=== PATIENT | female | born 1995 | race Hispanic/Latino ===

== ENCOUNTER 2017-01-21 18:31 | Emergency (ER) | payer MEDICAID ==
[2017-01-21 18:32] VITALS: BMI 31.1
[2017-01-21 18:44] VITALS: BP 136/89; PULSE 83; RESP 18; TEMP 98.1; O2SAT 99
[2017-01-21] MEDS ORDERED: Sodium Chloride 0.9% 1,000 ML IV STA (18:56)
[2017-01-21 19:50] LABS: BASO % 0.2 % (0.0-2.0); EOS # 0.1 K/uL (0.0-0.7); EOS % 1.1 % (0.0-4.0); HEMATOCRIT 43.5 % (34.0-47.0); LYMPH # 2.8 K/uL (1.0-4.3); LYMPH % 27.2 % (20.0-40.0); MEAN CELL VOLUME 85.3 fl (81.0-99.0); MEAN CORPUSCULAR HEMOGLOBIN 28.2 pg (27.0-31.0); MEAN PLATELET VOLUME 10.3 fl (7.2-11.7); MONO # 0.9 K/uL (0.0-0.8); MONO % 8.3 % (0.0-10.0); NEUT # 6.6 K/uL (1.8-7.0); NEUT % 63.2 % (50.0-75.0); NRBC % 0.1 % (0.0-0.0); RED CELL DISTRIBUTION WIDTH 14.1 % (11.5-14.5); WHITE BLOOD COUNT 10.4 K/uL (4.8-10.8)
[2017-01-21 20:00] LABS: ALB/GLOB RATIO 1.3 (1.0-2.1); ALKALINE PHOSPHATASE 109 U/L (38-126); ALT/SGPT 31 U/L (9-52); AST/SGOT 18 U/L (14-36); BILIRUBIN,TOTAL 0.4 mg/dl (0.2-1.3); BLOOD UREA NITROGEN 9 mg/dl (7-17); CALCIUM 9.3 mg/dL (8.4-10.2); CARBON DIOXIDE 24 mmol/L (22-30); CHLORIDE 106 mmol/L (98-107); GFR AFRICAN-AMERICAN > 60; GLUCOSE,RANDOM 87 mg/dL (65-105); POTASSIUM 3.7 MMOL/L (3.6-5.0); SODIUM 143 mmol/l (132-148); TOTAL PROTEIN 7.9 G/DL (6.3-8.2)
--- NOTE | 2017-01-21 21:05 | ED PDOC ---
HPI: Female Pain Time Seen by Provider: 01/21/17 18:54 Chief Complaint (Nursing): Female Genitourinary Chief Complaint (Provider): vaginal bleeding History Per: Patient History/Exam Limitations: no limitations Onset/Duration Of Symptoms: Days (2 weeks) Current Symptoms Are (Timing): Still Present Additional Complaint(s): Using about 6-8 tampons a day, twice as many as usual. Similar period a month ago. Prior to that had regular periods. Yesterday started to have lightheadedness and headache which is worsening and prompted visit to ER today. PMD None Past Medical History Reviewed: Historical Data, Nursing Documentation, Vital Signs Vital Signs: Last Vital Signs Temp 98.1 F 01/21/17 18:42 Pulse 83 01/21/17 18:42 Resp 18 01/21/17 18:42 BP 136/89 01/21/17 18:42 Pulse Ox 99 01/21/17 18:42 - Medical History PMH: Gastritis Denies: Chronic Kidney Disease - Surgical History Surgical History: Appendectomy, (x 1) - Family History Family History: States: Unknown Family Hx - Social History Current smoker - smoking cessation education provided: No Alcohol: Occasional Drugs: Denies - Home Medications Home Medications: Ambulatory Orders Medication Instructions Recorded Ibuprofen [Motrin] 600 mg PO Q8 PRN #15 tab 07/30/15 Loratadine [Claritin] 10 mg PO DAILY #15 tab 07/30/15 Amoxicillin/Clavulanate [Augmentin 1 tab PO BID #14 tab 10/03/15 875 MG-125 MG] Ibuprofen [Motrin] 600 mg PO Q6 PRN #15 tab 10/03/15 traMADol [Ultram] 50 mg PO TID PRN #20 tab 10/05/15 Acetaminophen/Butalbital/Caf 1 tab PO TID #20 tab 06/26/16 [Fioricet] Clindamycin Phos/Benzoyl Perox 50 gm TP BID #1 gel.w.pump 06/26/16 [Clinda-Benzoyl Perox 1-5% Pump] Famotidine [Pepcid] 20 mg PO DAILY #20 tab 06/26/16 Clindamycin [Cleocin] 300 mg PO QID #40 cap 08/24/16 Ketoconazole 2% Cr [Nizoral] 1 appl TP BID #1 tube 12/16/16 Nitrofurantoin Macrocrystals 100 mg PO BID #14 cap 12/16/16 [Macrobid] Naproxen [Naprosyn] 1 tab PO BID PRN #30 tab 01/22/17 - Allergies Allergies/Adverse Reactions: Allergies Allergy/AdvReac Type Severity Reaction Status Date / Time ceftriaxone sodium Allergy RASH Verified 06/26/16 18:33 [From Rocephin] Review of Systems ROS Statement: Except As Marked, All Systems Reviewed And Found Negative (and as per HPI) Constitutional: Positive for: Weakness Cardiovascular: Positive for: Light Headedness. Negative for: Chest Pain Genitourinary Female: Positive for: Vaginal Bleeding. Negative for: Pelvic Pain Neurological: Positive for: Headache Physical Exam - Reviewed Nursing Documentation Reviewed: Yes Vital Signs Reviewed: Yes - Physical Exam Appears: Positive for: Non-toxic, No Acute Distress Head Exam: Positive for: ATRAUMATIC, NORMOCEPHALIC Skin: Positive for: Warm, Dry Eye Exam: Positive for: EOMI, PERRL ENT: Negative for: Pharyngeal Erythema, Tonsillar Exudate Neck: Positive for: Painless ROM, Supple Cardiovascular/Chest: Positive for: Regular Rate, Rhythm, Chest Non Tender. Negative for: Murmur Respiratory: Positive for: Normal Breath Sounds. Negative for: Wheezing Gastrointestinal/Abdominal: Positive for: Soft. Negative for: Tenderness Back: Positive for: Normal Inspection. Negative for: Decreased ROM Extremity: Positive for: Normal ROM. Negative for: Deformity Lymphatic: Negative for: Adenopathy Neurologic/Psych: Positive for: Alert. Negative for: Motor/Sensory Deficits - Laboratory Results Result Diagrams: 01/21/17 19:34 01/21/17 19:34 - ECG O2 Sat by Pulse Oximetry: 99 Pulse Ox Interpretation: Normal Medical Decision Making Medical Decision Making: No emergently significant lab abnormalities EXAM: US First Trimester, Transabdominal CLINICAL HISTORY: 21 years old, female; Signs and symptoms; Lmp or gestational age (in weeks): Lmp 12/26/2016; Other: Bleeding 3 wks pos urine preg in er; ; Additional info: Pelvic pain bleeding for 3 wks TECHNIQUE: Real-time transabdominal obstetrical ultrasound of the maternal pelvis and a first trimester with image documentation. COMPARISON: No relevant prior studies available. FINDINGS: Gestation: No intrauterine gestational sac. Uterus/cervix: Endometrium: 0.5 cm in thickness. Closed cervix. Ovaries: RIGHT ovary: 2.7 x 3.1 x 2.4 cm anechoic lesion. LEFT ovary: Normal. No adnexal masses. Free fluid: No significant free fluid. IMPRESSION: 1. No intrauterine gestation. DDX: Early IUP, missed , ectopic . 2. RIGHT ovarian cyst. Thank you for allowing us to participate in the care of your patient. Dictated and Authenticated by: Salomon Patel MD 01/22/2017 12:13 AM Eastern Time ([place] & [place]) Pt is not . DW pt findings and plan of care. Naprosyn for pain, f/u [facility]. Disposition - Clinical Impression Clinical Impression: Menorrhagia, Headache - Disposition Referrals: [facility] [Outside] [facility] [Outside[facility] (FOLLOW UP WITH [facility]EXT WEEK) Disposition: Routine/Home Disposition Time: 00:00 Condition: GOOD Prescriptions: Naproxen [Naprosyn] 1 tab PO BID PRN #30 tab PRN Reason: Pain Instructions: Menorrhagia (ED)
--- NOTE | 2017-01-22 00:13 | US ---
EXAM: US First Trimester, Transabdominal CLINICAL HISTORY: 21 years old, female; Signs and symptoms; Lmp or gestational age (in weeks): Lmp 12/26/2016; Other: Bleeding 3 wks pos urine preg in er; ; Additional info: Pelvic pain bleeding for 3 wks TECHNIQUE: Real-time transabdominal obstetrical ultrasound of the maternal pelvis and a first trimester with image documentation. COMPARISON: No relevant prior studies available. FINDINGS: Gestation: No intrauterine gestational sac. Uterus/cervix: Endometrium: 0.5 cm in thickness. Closed cervix. Ovaries: RIGHT ovary: 2.7 x 3.1 x 2.4 cm anechoic lesion. LEFT ovary: Normal. No adnexal masses. Free fluid: No significant free fluid. IMPRESSION: 1. No intrauterine gestation. DDX: Early IUP, missed , ectopic . 2. RIGHT ovarian cyst.
== END 2017-01-22 00:27 | disposition home or self-care (01) ==
LOC: H.ER 18:31
DX: N83.201 Unspecified ovarian cyst, right side (principal); N92.0 Excessive and frequent menstruation with regular cycle; R51 Headache
CPT/HCPCS: 76805; 76817; 80053; 84702; 85025; 85610; 85730; 86850; 86900; 99283; J7040

== ENCOUNTER 2017-03-26 22:15 | Emergency (ER) | payer SELFPAY ==
[2017-03-26 22:23] VITALS: BMI 37.0
[2017-03-26 22:28] VITALS: PULSE 90; RESP 16; TEMP 98.9; O2SAT 99
--- NOTE | 2017-03-26 23:22 | ED PDOC ---
Upper Extremity Pain/Injury Time Seen by Provider: 03/26/17 22:52 Chief Complaint (Nursing): Upper Extremity Problem/Injury Chief Complaint (Provider): fall injury History Per: Patient History/Exam Limitations: no limitations Additional Complaint(s): 21yo F in ED for eval of fall injury sustained last night after slipping on black ice outside injuring left wrist/hand/shoulder/elbow and injury to left hip and lower back with bruising. no head injury no deformity. admits to swelling and pain worse at elbow and hand-. right hand dominant Past Medical History Reviewed: Historical Data, Nursing Documentation, Vital Signs Vital Signs: Last Vital Signs Temp 98.9 F 03/26/17 22:23 Pulse 90 03/26/17 22:23 Resp 16 03/26/17 22:23 BP Pulse Ox 99 03/26/17 22:23 - Medical History PMH: Gastritis Denies: Chronic Kidney Disease - Surgical History Surgical History: Appendectomy, (x 1) - Family History Family History: States: Unknown Family Hx - Home Medications Home Medications: Ambulatory Orders Medication Instructions Recorded Ibuprofen [Motrin] 600 mg PO Q8 PRN #15 tab 07/30/15 Loratadine [Claritin] 10 mg PO DAILY #15 tab 07/30/15 Amoxicillin/Clavulanate [Augmentin 1 tab PO BID #14 tab 10/03/15 875 MG-125 MG] Ibuprofen [Motrin] 600 mg PO Q6 PRN #15 tab 10/03/15 traMADol [Ultram] 50 mg PO TID PRN #20 tab 10/05/15 Acetaminophen/Butalbital/Caf 1 tab PO TID #20 tab 06/26/16 [Fioricet] Clindamycin Phos/Benzoyl Perox 50 gm TP BID #1 gel.w.pump 06/26/16 [Clinda-Benzoyl Perox 1-5% Pump] Famotidine [Pepcid] 20 mg PO DAILY #20 tab 06/26/16 Clindamycin [Cleocin] 300 mg PO QID #40 cap 08/24/16 Ketoconazole 2% Cr [Nizoral] 1 appl TP BID #1 tube 12/16/16 Nitrofurantoin Macrocrystals 100 mg PO BID #14 cap 12/16/16 [Macrobid] Naproxen [Naprosyn] 1 tab PO BID PRN #30 tab 01/22/17 Cyclobenzaprine [Cyclobenzaprine 10 mg PO BID #14 tab 03/27/17 HCl] Ibuprofen [Motrin] 400 mg PO Q6 #30 tab 03/27/17 - Allergies Allergies/Adverse Reactions: Allergies Allergy/AdvReac Type Severity Reaction Status Date / Time ceftriaxone sodium Allergy RASH Verified 03/26/17 22:22 [From Rocephin] Review of Systems ROS Statement: Except As Marked, All Systems Reviewed And Found Negative Musculoskeletal: Positive for: Shoulder Pain, Arm Pain, Back Pain, Hand Pain, Leg Pain Neurological: Negative for: Weakness, Numbness, Incoordination, Change in Speech , Confusion, Seizures, Altered Mental Status, Headache, Dizziness Physical Exam - Reviewed Nursing Documentation Reviewed: Yes Vital Signs Reviewed: Yes - Physical Exam Appears: Positive for: Well, Non-toxic, No Acute Distress Skin: Positive for: Normal Color, Warm, DRY Cardiovascular/Chest: Positive for: Regular Rate, Rhythm Respiratory: Positive for: CNT, Normal Breath Sounds Back: Positive for: Other (brusing noted to left lateral leg). Negative for: L CVA Tenderness, R CVA Tenderness, Vertebral Tenderness, Decreased ROM, Muscle Spasm Extremity: Positive for: Other (left hand: brusing and swelling noted lateral hand pain with ROM, nuerovasc intact. wrist: pain with ROM no defomirty. elbow: tenderness noted pain with pronation supination. shoulder: AC joint tenderness. scapular: nontender. clavicle nontender. ) Neurologic/Psych: Positive for: Alert, Oriented - ECG O2 Sat by Pulse Oximetry: 99 - Radiology X-Ray: Interpreted by Me (shoulder: negative. elbow: negative. hand: negative) - Progress ED Course And Treament: Orders Category Date Time Status ELBOW LEFT 3 VIEWS ROUTINE [RAD] Stat Radiology 03/26/17 23:29 Ordered ELBOW RIGHT 3 VIEWS ROUTINE [RAD] Stat Radiology 03/26/17 22:52 Stop Req HAND LEFT 3 VIEWS ROUTINE [RAD] Stat Radiology 03/26/17 22:52 Ordered SHOULDER LEFT [RAD] Stat Radiology 03/26/17 22:52 Ordered WRIST, LEFT 3 VIEWS [RAD] Stat Radiology 03/26/17 22:52 Ordered Medical Decision Making Medical Decision Making: dx: contusions and sprains motrin for pain and vlecro wrist splint and sling for shoulder. f.u with pmd Disposition - Clinical Impression Clinical Impression: Contusion, Sprain - Patient ED Disposition Is Patient to be Admitted: No Counseled Patient/Family Regarding: Studies Performed, Diagnosis, Need For Followup, Rx Given - Disposition Referrals: [facility] [Outside] Disposition: Routine/Home Disposition Time: 00:09 Condition: STABLE Prescriptions: Cyclobenzaprine [Cyclobenzaprine HCl] 10 mg PO BID #14 tab Ibuprofen [Motrin] 400 mg PO Q6 #30 tab Instructions: Wrist Injury (ED), Sprain (ED), Contusion in Adults (DC) Forms: [facility] ([place])
--- NOTE | 2017-03-27 12:54 | RAD ---
PROCEDURE: Left Hand Radiographs. HISTORY: Hand injury. COMPARISON: Comparison made with concurrent radiographs of the left wrist. FINDINGS: BONES: Normal. No fracture. JOINTS: Normal. No osteoarthritic changes. SOFT TISSUES: Normal. OTHER FINDINGS: None. IMPRESSION: No evidence of acute displaced fracture nor dislocation. If symptoms persist or occult fracture suspected clinically consider repeat radiographs in 5-10 days as most fractures should become radiographically evident in this timeframe.
--- NOTE | 2017-03-27 13:57 | RAD ---
PROCEDURE: Radiographs of the Left Shoulder HISTORY: Shoulder injury COMPARISON: No prior. FINDINGS: BONES: Normal. No fracture. JOINTS: Normal. Glenohumeral and acromioclavicular joints preserved. No osteoarthritis. SOFT TISSUES: Normal. OTHER FINDINGS: None. IMPRESSION: No evidence of acute displaced fracture nor dislocation. If symptoms persist or occult fracture suspected clinically recommend repeat radiographs in 5-10 days as most fractures become radiographically evident in this timeframe. Print.
--- NOTE | 2017-03-27 14:08 | RAD ---
PROCEDURE: Left Wrist Radiographs. HISTORY: Wrist Pain. No history of recent/ related trauma provided COMPARISON: None. FINDINGS: BONES: Normal. No fracture. JOINTS: Normal. No dislocation. SOFT TISSUES: Normal. OTHER FINDINGS: None. IMPRESSION: Normal left wrist radiographs.
--- NOTE | 2017-03-27 14:08 | RAD ---
PROCEDURE: Radiographs of the left elbow. HISTORY: elbow injury COMPARISON: No prior. FINDINGS: BONES: Normal. No fracture. JOINTS: Normal. No osteoarthritis. SOFT TISSUES: Normal. JOINT EFFUSION: None. OTHER FINDINGS: None IMPRESSION: Unremarkable radiographs of the left elbow.
== END 2017-03-27 00:25 | disposition home or self-care (01) ==
LOC: H.ER 22:15
DX: S63.502A Unspecified sprain of left wrist, initial encounter (principal); S40.012A Contusion of left shoulder, initial encounter; W19.XXXA Unspecified fall, initial encounter; Y92.89 Other specified places as the place of occurrence of the external cause

== ENCOUNTER 2017-05-14 00:05 | Emergency (ER) | payer SELFPAY ==
[2017-05-14 00:05] VITALS: BMI 37.0
[2017-05-14 00:33] VITALS: BP 125/78; PULSE 84; RESP 16; TEMP 98.2; O2SAT 98
--- NOTE | 2017-05-14 01:52 | ED PDOC ---
HPI: Abdomen Time Seen by Provider: 05/14/17 01:01 Chief Complaint (Nursing): Female Genitourinary Chief Complaint (Provider): Female Genitourinary History Per: Patient History/Exam Limitations: no limitations Onset/Duration Of Symptoms: Other (x1 week) Current Symptoms Are (Timing): Still Present Additional Complaint(s): 22 y/o female presents to the ED complaining of suprapubic pain and blood in urine x 1 week which got worse today. Reports pain with urination but denies back pain, fever, vomiting or any further medical complaints. Past Medical History Reviewed: Historical Data, Nursing Documentation, Vital Signs Vital Signs: Last Vital Signs Temp 98.2 F 05/14/17 00:30 Pulse 84 05/14/17 00:30 Resp 16 05/14/17 00:30 BP 125/78 05/14/17 00:30 Pulse Ox 98 05/14/17 02:41 - Medical History PMH: Gastritis Denies: Chronic Kidney Disease - Surgical History Surgical History: Appendectomy, (x 1) Other surgeries: Traumatic amputation of right arm - Family History Family History: States: Unknown Family Hx - Home Medications Home Medications: Ambulatory Orders Medication Instructions Recorded Ibuprofen [Motrin] 600 mg PO Q8 PRN #15 tab 07/30/15 Loratadine [Claritin] 10 mg PO DAILY #15 tab 07/30/15 Amoxicillin/Clavulanate [Augmentin 1 tab PO BID #14 tab 10/03/15 875 MG-125 MG] Ibuprofen [Motrin] 600 mg PO Q6 PRN #15 tab 10/03/15 traMADol [Ultram] 50 mg PO TID PRN #20 tab 10/05/15 Acetaminophen/Butalbital/Caf 1 tab PO TID #20 tab 06/26/16 [Fioricet] Clindamycin Phos/Benzoyl Perox 50 gm TP BID #1 gel.w.pump 06/26/16 [Clinda-Benzoyl Perox 1-5% Pump] Famotidine [Pepcid] 20 mg PO DAILY #20 tab 06/26/16 Clindamycin [Cleocin] 300 mg PO QID #40 cap 08/24/16 Ketoconazole 2% Cr [Nizoral] 1 appl TP BID #1 tube 12/16/16 Nitrofurantoin Macrocrystals 100 mg PO BID #14 cap 12/16/16 [Macrobid] Naproxen [Naprosyn] 1 tab PO BID PRN #30 tab 01/22/17 Cyclobenzaprine [Cyclobenzaprine 10 mg PO BID #14 tab 03/27/17 HCl] Ibuprofen [Motrin] 400 mg PO Q6 #30 tab 03/27/17 Nitrofurantoin Macrocrystals 100 mg PO BID #14 cap 05/14/17 [Macrobid] - Allergies Allergies/Adverse Reactions: Allergies Allergy/AdvReac Type Severity Reaction Status Date / Time ceftriaxone sodium Allergy RASH Verified 05/14/17 00:30 [From Rocephin] Review of Systems ROS Statement: Except As Marked, All Systems Reviewed And Found Negative (As per HPI, otherwise negative) Constitutional: Negative for: Fever Gastrointestinal: Positive for: Abdominal Pain (Suprapubic pain). Negative for : Vomiting Genitourinary Female: Positive for: Hematuria Musculoskeletal: Negative for: Back Pain Physical Exam - Reviewed Nursing Documentation Reviewed: Yes Vital Signs Reviewed: Yes - Physical Exam Appears: Positive for: Well, Non-toxic, No Acute Distress Head Exam: Positive for: ATRAUMATIC, NORMAL INSPECTION, NORMOCEPHALIC Skin: Positive for: Normal Color, Warm, Dry Eye Exam: Positive for: EOMI, Normal appearance, PERRL ENT: Positive for: Normal ENT Inspection Neck: Positive for: Normal, Painless ROM, Supple Cardiovascular/Chest: Positive for: Regular Rate, Rhythm. Negative for: Murmur Respiratory: Positive for: Normal Breath Sounds. Negative for: Accessory Muscle Use, Respiratory Distress Gastrointestinal/Abdominal: Positive for: Tenderness (Suprapubic tenderness) Back: Positive for: Normal Inspection Extremity: Positive for: Normal ROM. Negative for: Deformity Neurologic/Psych: Positive for: Alert, Oriented (x3) - ECG O2 Sat by Pulse Oximetry: 98 (RA) Pulse Ox Interpretation: Normal Medical Decision Making Medical Decision Making: Time: 01:33 Initial Impression: UTI, related complications Plan: Urine dipstick Pyridium 100mg PO urine (HCG) Reevaluation Time: 02:10 --Urine dip is consistent with UTI Scribe Attestation: Documented by Marco Romero acting as a scribe for Paula Del Rosario MD. Scribe Attestation: All medical record entries made by the Scribe were at my direction and personally dictated by me. I have reviewed the chart and agree that the record accurately reflects my personal performance of the history, physical exam, medical decision making, and the department course for this patient. I have also personally directed, reviewed, and agree with the discharge instructions and disposition. Disposition - Clinical Impression Clinical Impression: Abdominal pain in female, UTI (urinary tract infection) - Patient ED Disposition Is Patient to be Admitted: No Doctor Will See Patient In The: Office Counseled Patient/Family Regarding: Studies Performed, Diagnosis, Need For Followup - Disposition Referrals: [facility] [Outside] Disposition: Routine/Home Disposition Time: 02:32 Condition: GOOD Additional Instructions: Take your medications as instructed. Follow up with your PCP in 2-3 days. Prescriptions: Nitrofurantoin Macrocrystals [Macrobid] 100 mg PO BID #14 cap Instructions: Urinary Tract Infection in Women (ED)
== END 2017-05-14 02:30 | disposition home or self-care (01) ==
LOC: H.ER 00:05
DX: N39.0 Urinary tract infection, site not specified (principal); R10.9 Unspecified abdominal pain

== ENCOUNTER 2017-10-21 22:07 | Emergency (ER) | payer MEDICAID ==
[2017-10-21 22:07] VITALS: BMI 37.0
[2017-10-21] MEDS ORDERED: Lactated Ringer's 1,000 ML IV STA (22:58)
--- NOTE | 2017-10-21 23:29 | ED PDOC ---
HPI: Abdomen Time Seen by Provider: 10/21/17 22:49 Chief Complaint (Nursing): Abdominal Pain Chief Complaint (Provider): abdominal pain History Per: Patient History/Exam Limitations: no limitations Onset/Duration Of Symptoms: Days (x1 week) Current Symptoms Are (Timing): Still Present Quality Of Discomfort: "Pain" Additional Complaint(s): Kerry Means is a 22 year old female, with no significant past medical history, who presents to the emergency department for evaluation of an intermittent abdominal pain onset for x1 week. Patient is A0, 12 weeks and 5 days . Patient states she fell last Monday while going up the stairs with her daughter. At the time she fell forward on to her abdomen but due to no bleeding, she didn't seek medical attention. Patient reports a persistent pain since fall and describes an abdominal pain as well as lower back pain. Patient saw her OB at [facility] on Monday where she had a urine test which came back normal and was told to follow up. She denies any fever, chills or other medical complaints. PMD: [facility]. 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 - Family History Family History: States: Unknown Family Hx - Home Medications Home Medications: Ambulatory Orders Medication Instructions Recorded Ibuprofen [Motrin] 600 mg PO Q8 PRN #15 tab 07/30/15 Loratadine [Claritin] 10 mg PO DAILY #15 tab 07/30/15 Amoxicillin/Clavulanate [Augmentin 1 tab PO BID #14 tab 10/03/15 875 MG-125 MG] Ibuprofen [Motrin] 600 mg PO Q6 PRN #15 tab 10/03/15 traMADol [Ultram] 50 mg PO TID PRN #20 tab 10/05/15 Acetaminophen/Butalbital/Caf 1 tab PO TID #20 tab 06/26/16 [Fioricet] Clindamycin Phos/Benzoyl Perox 50 gm TP BID #1 gel.w.pump 06/26/16 [Clinda-Benzoyl Perox 1-5% Pump] Famotidine [Pepcid] 20 mg PO DAILY #20 tab 06/26/16 Clindamycin [Cleocin] 300 mg PO QID #40 cap 08/24/16 Ketoconazole 2% Cr [Nizoral] 1 appl TP BID #1 tube 12/16/16 Nitrofurantoin Macrocrystals 100 mg PO BID #14 cap 12/16/16 [Macrobid] Naproxen [Naprosyn] 1 tab PO BID PRN #30 tab 01/22/17 Cyclobenzaprine [Cyclobenzaprine 10 mg PO BID #14 tab 03/27/17 HCl] Ibuprofen [Motrin] 400 mg PO Q6 #30 tab 03/27/17 Nitrofurantoin Macrocrystals 100 mg PO BID #14 cap 05/14/17 [Macrobid] Nitrofurantoin Macrocrystals 100 mg PO BID #14 cap 10/22/17 [Macrobid] - Allergies Allergies/Adverse Reactions: Allergies Allergy/AdvReac Type Severity Reaction Status Date / Time ceftriaxone sodium Allergy RASH Verified 05/14/17 00:30 [From Rocephin] Review of Systems ROS Statement: Except As Marked, All Systems Reviewed And Found Negative Constitutional: Negative for: Fever, Chills Gastrointestinal: Positive for: Abdominal Pain Genitourinary Female: Negative for: Vaginal Bleeding Musculoskeletal: Positive for: Back Pain (lower) Physical Exam - Reviewed Nursing Documentation Reviewed: Yes Vital Signs Reviewed: Yes - Physical Exam Appears: Positive for: Non-toxic, No Acute Distress Head Exam: Positive for: ATRAUMATIC, NORMAL INSPECTION, NORMOCEPHALIC Skin: Positive for: Normal Color, Warm, Dry Eye Exam: Positive for: Normal appearance, EOMI, PERRL Neck: Positive for: Painless ROM Cardiovascular/Chest: Positive for: Regular Rate, Rhythm. Negative for: Murmur Respiratory: Positive for: Normal Breath Sounds. Negative for: Respiratory Distress Gastrointestinal/Abdominal: Positive for: Normal Exam, Soft. Negative for: Tenderness, Guarding, Rebound Back: Positive for: Normal Inspection. Negative for: L CVA Tenderness, R CVA Tenderness, Vertebral Tenderness Extremity: Positive for: Normal ROM (upper and lower extremities), Deformity ( limb deformity of the right upper extremity). Negative for: Swelling Neurologic/Psych: Positive for: Alert, Oriented. Negative for: Motor/Sensory Deficits - Laboratory Results Result Diagrams: 10/21/17 23:30 10/21/17 23:30 - ECG O2 Sat by Pulse Oximetry: 97 (RA) Pulse Ox Interpretation: Normal Medical Decision Making Medical Decision Making: Time: 22:49 Initial Impression: 22 y/o female with abdominal pain in setting of recent fall in Initial Plan: --Beta-HCG, Quantitative --CMP --Urine dipstick --CBC w/ differential --Tylenol 325mg tab 650 mg PO --Lactated Ringers 1,000 ml IV 1,000 mls/hr --Urinalysis --Pelvis/Transvag US --Reevaluation 00:51 Transvaginal US FINDINGS: Gestation: A single live intrauterine is noted with heart rate in the range of 157 bpm. A yolk sac is present. [place] rump length is 6.4 cm which corresponds to an estimated gestational age of 12 weeks 5 days plus or minus 4 days. Placenta/amniotic fluid: Cannot be adequately evaluated due to the early gestational age. Uterus/cervix: The uterus measures 14.4 x 6.6 x 9 cm. No myometrial mass. Ovaries: The right ovary is displaced and obscured by overlying bowel gas and cannot be visualized. The left ovary is displaced and obscured by overlying bowel gas and cannot be visualized. Free fluid: No significant free fluid is noted within the pelvis. IMPRESSION: 1. Single living intrauterine with an estimated gestational age of 12 weeks 5 and a heart rate of 157 bpm. 2. Nonvisualization of the ovaries. No acute findings. 01:02 Labs reviewed and shows no clinical significant abnormalities. However, urine is indicative of an UTI. Patient is medically stable upon discharge, diagnosis UTI. ----- Scribe Attestation: Documented by Filippo Larsen, acting as a scribe for Chucky Noriega MD. Provider Scribe Attestation: All medical record entries made by the Scribe were at my direction and personally dictated by me. I have reviewed the chart and agree that the record accurately reflects my personal performance of the history, physical exam, medical decision making, and the department course for this patient. I have also personally directed, reviewed, and agree with the discharge instructions and disposition. Disposition - Clinical Impression Clinical Impression: UTI (urinary tract infection) during - Disposition Disposition: Routine/Home Disposition Time: 01:02 Condition: STABLE Prescriptions: Nitrofurantoin Macrocrystals [Macrobid] 100 mg PO BID #14 cap Instructions: Urinary Tract Infection, Adult (DC) Forms: [facility] (Lao)
[2017-10-22 00:03] LABS: BASO % 0.3 % (0.0-2.0); EOS # 0.1 K/uL (0.0-0.7); EOS % 0.9 % (0.0-4.0); HEMOGLOBIN 14.2 g/dL (12.0-16.0); LYMPH # 2.6 K/uL (1.0-4.3); LYMPH % 19.7 % (20.0-40.0); MEAN CELL VOLUME 86.2 fl (81.0-99.0); MEAN CORPUSCULAR HEMOGLOBIN 28.9 pg (27.0-31.0); MEAN CORPUSCULAR HGB CONC 33.6 g/dL (33.0-37.0); MEAN PLATELET VOLUME 10.2 fl (7.2-11.7); MONO # 1.1 K/uL (0.0-0.8); MONO % 7.9 % (0.0-10.0); NEUT # 9.5 K/uL (1.8-7.0); NEUT % 71.2 % (50.0-75.0); RBC 4.92 Mil/uL (3.80-5.20); WHITE BLOOD COUNT 13.4 K/uL (4.8-10.8)
[2017-10-22 00:08] LABS: SQUAMOUS EPITHIAL 6 /hpf (0-5); URINE BACTERIA RARE (<OCC); URINE BILIRUBIN NEGATIVE (NEGATIVE); URINE BLOOD NEGATIVE (NEGATIVE); URINE CALCIUM OXALATE CRYSTALS FEW /hpf (<OCC); URINE CLARITY CLOUDY (Clear); URINE COLOR AMBER (YELLOW); URINE GLUCOSE (UA) NEG (Normal); URINE LEUKOCYTE ESTERASE TRACE Leu/uL (Negative); URINE PROTEIN NEGATIVE (NEGATIVE)
[2017-10-22 00:16] LABS: ALB/GLOB RATIO 1.1 (1.0-2.1); ALBUMIN 4.5 g/dL (3.5-5.0); ALT/SGPT 18 U/L (9-52); AST/SGOT 21 U/L (14-36); BLOOD UREA NITROGEN 5 mg/dl (7-17); CALCIUM 9.6 mg/dL (8.4-10.2); GFR AFRICAN-AMERICAN > 60; GFR NON-AFRICAN AMERICAN > 60
[2017-10-22 01:18] VITALS: BP 115/68; PULSE 88; RESP 18; TEMP 98.3; O2SAT 100
--- NOTE | 2017-10-23 10:10 | US ---
Date of service: 10/22/2017 PROCEDURE: OB Pelvic Ultrasound HISTORY: Abdominal pain in preg COMPARISON: None available. FINDINGS: UTERUS: Single Live intrauterine gestation. CRL measures 6.4 cm equivalent to 12 weeks and 5 days gestatioin age (Ultrasound estimated): 12 weeks and 5 days Date of delivery (Ultrasound estimated) : 05/01/2018 Heart rate: 156 bpm. Jennifer-gestational hemorrhage: None. Uterus measures 14.4 x 0.9 x 6.6 cm. No mass CERVIX: Long and closed. No cervical abnormality seen. RIGHT OVARY: Not visualized. LEFT OVARY: Not visualized. FREE FLUID: None. OTHER FINDINGS: None. IMPRESSION: Single live intrauterine gestation with mean gestational age of 12 weeks and 5 days. The estimated date of delivery by ultrasound is 05/01/2018. The ultrasound dates correspond with the clinical dates.
== END 2017-10-22 01:18 | disposition home or self-care (01) ==
LOC: H.ER 22:07
DX: O23.41 Unspecified infection of urinary tract in pregnancy, first trimester (principal); Z3A.12 12 weeks gestation of pregnancy

== ENCOUNTER 2017-10-23 19:06 | Emergency (ER) | payer MEDICAID ==
[2017-10-23 19:06] VITALS: BMI 37.0
[2017-10-23 19:13] VITALS: TEMP 98.5; O2SAT 100
--- NOTE | 2017-10-23 20:24 | ED PDOC ---
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 Patient reports she is 12 weeks . She developed chest pain first causing her sister to call an ambulance. Denies fever, cough, leg pain, anxiety and travel. no history of PE/dvt or risk factors. PMD: : 2 Para: 1 Past Medical History Reviewed: Historical Data, Nursing Documentation, Vital Signs Vital Signs: Last Vital Signs Temp 98.5 F 10/23/17 23:37 Pulse 86 10/24/17 06:10 Resp 16 10/24/17 06:10 BP 113/70 10/24/17 06:10 Pulse Ox 100 10/25/17 11:06 - Medical History PMH: No Chronic Diseases, Gastritis Denies: Chronic Kidney Disease - Surgical History Surgical History: Appendectomy, (x 1) Other surgeries: right arm amputation - Family History Family History: States: Unknown Family Hx - Social History Current smoker - smoking cessation education provided: No Alcohol: None Drugs: Denies - Home Medications Home Medications: Ambulatory Orders Medication Instructions Recorded Ibuprofen [Motrin] 600 mg PO Q8 PRN #15 tab 07/30/15 Loratadine [Claritin] 10 mg PO DAILY #15 tab 07/30/15 Amoxicillin/Clavulanate [Augmentin 1 tab PO BID #14 tab 10/03/15 875 MG-125 MG] Ibuprofen [Motrin] 600 mg PO Q6 PRN #15 tab 10/03/15 traMADol [Ultram] 50 mg PO TID PRN #20 tab 10/05/15 Acetaminophen/Butalbital/Caf 1 tab PO TID #20 tab 06/26/16 [Fioricet] Clindamycin Phos/Benzoyl Perox 50 gm TP BID #1 gel.w.pump 06/26/16 [Clinda-Benzoyl Perox 1-5% Pump] Famotidine [Pepcid] 20 mg PO DAILY #20 tab 06/26/16 Clindamycin [Cleocin] 300 mg PO QID #40 cap 08/24/16 Ketoconazole 2% Cr [Nizoral] 1 appl TP BID #1 tube 12/16/16 Nitrofurantoin Macrocrystals 100 mg PO BID #14 cap 12/16/16 [Macrobid] Naproxen [Naprosyn] 1 tab PO BID PRN #30 tab 01/22/17 Cyclobenzaprine [Cyclobenzaprine 10 mg PO BID #14 tab 03/27/17 HCl] Ibuprofen [Motrin] 400 mg PO Q6 #30 tab 03/27/17 Nitrofurantoin Macrocrystals 100 mg PO BID #14 cap 05/14/17 [Macrobid] Nitrofurantoin Macrocrystals 100 mg PO BID #14 cap 10/22/17 [Macrobid] Nitrofurantoin Macrocrystals 100 mg PO BID #14 cap 10/24/17 [Macrobid] - Allergies Allergies/Adverse Reactions: Allergies Allergy/AdvReac Type Severity Reaction Status Date / Time ceftriaxone sodium Allergy RASH Verified 10/23/17 19:10 [From Rocephin] Review of Systems ROS Statement: Except As Marked, All Systems Reviewed And Found Negative Constitutional: Negative for: Fever, Chills Cardiovascular: Positive for: Chest Pain Respiratory: Positive for: Shortness of Breath. Negative for: Cough Gastrointestinal: Positive for: Abdominal Pain Physical Exam - Reviewed Nursing Documentation Reviewed: Yes Vital Signs Reviewed: Yes - Physical Exam Appears: Positive for: Non-toxic, No Acute Distress Head Exam: Positive for: ATRAUMATIC, NORMAL INSPECTION, NORMOCEPHALIC Skin: Positive for: Normal Color, Warm, Dry Eye Exam: Positive for: EOMI, Normal appearance, PERRL ENT: Positive for: Normal ENT Inspection Neck: Positive for: Normal, Painless ROM, Supple Cardiovascular/Chest: Positive for: Regular Rate, Rhythm. Negative for: Murmur Respiratory: Positive for: Normal Breath Sounds. Negative for: Wheezing, Respiratory Distress Gastrointestinal/Abdominal: Positive for: Normal Exam, Soft. Negative for: Tenderness Back: Positive for: Normal Inspection Extremity: Positive for: Normal ROM, Capillary Refill (less than 2 s). Negative for: Tenderness, Calf Tenderness, Deformity, Swelling Neurologic/Psych: Positive for: Alert, Oriented (x 3). Negative for: Motor/ Sensory Deficits - Laboratory Results Result Diagrams: 10/23/17 20:32 10/23/17 20:32 - ECG O2 Sat by Pulse Oximetry: 100 (RA) Pulse Ox Interpretation: Normal Medical Decision Making Medical Decision Making: Time; 20:06 Impression: chest pain and abdominal pain Initial Plan: --Beta Quant --EKG --CBC --CMP --D Dimer 23:48 EXAM: US First Trimester, Transabdominal CLINICAL HISTORY: 22 years old, female; Pain; Other: Chest pain; Gestational age or lmp: 08/01/17; ; Additional info: Abdominal pain TECHNIQUE: Real-time transabdominal obstetrical ultrasound of the maternal pelvis and a first trimester with image documentation. COMPARISON: US - OB , LIMITED 2017-10-22 00:09 FINDINGS: Gestation: Single live intrauterine gestation. heart rate of 154 beats per minute. [place]-rump length of 6.7 cm, correlating with gestational age of 13 weeks 0 days. Uterus/cervix: No subchorionic hemorrhage. Closed cervix. Ovaries: Normal ovaries. No adnexal masses. Free fluid: No significant free fluid. IMPRESSION: 1. Single live intrauterine gestation. Thank you for allowing us to participate in the care of your patient. Dictated and Authenticated by: Salomon Patel MD 10/23/2017 11:48 PM Eastern Time ([place] & [place]) ddimer elevated. explained to patient the risks/benefits of the CT scan angio to rule out PE. pt states she has no chest pain, and given potential damage from the scatter of radiation pt declining. understands the risks involved. pt appears to be comfortable and in no distress. 00:19 Labs demonstrate borderline UTI and trace leukocytes. Patient is denying any vaginal bleeding at this time. Explained results of US and patient is refusing follow up CT scan. Prescribed Macrobid (pt was previously prescribed that but said she hasnt taken it) and advised patient to follow up with [facility] tomorrow. Also advised patient to continue vitamins. Return precautions given. ---- Scribe Attestation: Documented by Tamara Laurent, acting as a scribe for Martha Oakes MD Provider Scribe Attestation: All medical record entries made by the Scribe were at my direction and personally dictated by me. I have reviewed the chart and agree that the record accurately reflects my personal performance of the history, physical exam, medical decision making, and the department course for this patient. I have also personally directed, reviewed, and agree with the discharge instructions and disposition. Disposition - Clinical Impression Clinical Impression: Abdominal discomfort, Abdominal pain during - Patient ED Disposition Is Patient to be Admitted: No Counseled Patient/Family Regarding: Studies Performed, Diagnosis, Need For Followup, Rx Given - Disposition Disposition: Routine/Home Disposition Time: 00:00 Condition: IMPROVED Additional Instructions: follow up in [facility] return to the ED with any worsening or concerning symptoms Prescriptions: Nitrofurantoin Macrocrystals [Macrobid] 100 mg PO BID #14 cap Instructions: Urinary Tract Infection, Adult (DC) Forms: [employer] ([place])
[2017-10-23 20:37] LABS: BASO % 0.4 % (0.0-2.0); EOS % 0.3 % (0.0-4.0); HEMOGLOBIN 13.4 g/dL (12.0-16.0); LYMPH # 1.9 K/uL (1.0-4.3); LYMPH % 14.9 % (20.0-40.0); MEAN CORPUSCULAR HEMOGLOBIN 29.1 pg (27.0-31.0); MEAN CORPUSCULAR HGB CONC 33.8 g/dL (33.0-37.0); MONO # 0.7 K/uL (0.0-0.8); MONO % 5.1 % (0.0-10.0); NEUT # 10.2 K/uL (1.8-7.0); NEUT % 79.3 % (50.0-75.0); RBC 4.61 Mil/uL (3.80-5.20); WHITE BLOOD COUNT 12.8 K/uL (4.8-10.8)
[2017-10-23 20:54] LABS: ALB/GLOB RATIO 1.2 (1.0-2.1); ALT/SGPT 25 U/L (9-52); AST/SGOT 15 U/L (14-36); BLOOD UREA NITROGEN 4 mg/dl (7-17); CALCIUM 9.2 mg/dL (8.4-10.2); GFR AFRICAN-AMERICAN > 60; GFR NON-AFRICAN AMERICAN > 60
[2017-10-23 23:39] VITALS: BP 113/70; PULSE 86; RESP 16
[2017-10-24 00:33] LABS: SQUAMOUS EPITHIAL 14 /hpf (0-5); URINE BACTERIA RARE (<OCC); URINE BILIRUBIN NEGATIVE (NEGATIVE); URINE BLOOD NEGATIVE (NEGATIVE); URINE CLARITY CLOUDY (Clear); URINE COLOR YELLOW (YELLOW); URINE GLUCOSE (UA) NEG (Normal); URINE LEUKOCYTE ESTERASE SMALL Leu/uL (Negative); URINE PROTEIN 30 mg/dL (NEGATIVE)
--- NOTE | 2017-10-24 09:39 | US ---
Date of service: 10/23/2017 PROCEDURE: Obstetrical ultrasound examination HISTORY: abdominal pain COMPARISON: 10/22/2017 TECHNIQUE: Transabdominal FINDINGS: The examination demonstrates a single live intrauterine gestation. The heart rate is 154 beats per minute. The [place]-rump length is 6.7 cm equal to 13 weeks 0 days gestational age. Gestational sac diameter of 6.7 cm is out of range for age determination. The YANIV by ultrasound is 04/30/2018. There is no subchorionic hemorrhage identified. The cervix measures 4.8 cm and is closed. The uterus measures 14.5 x 5.6 x 9.7 cm. There is no uterine mass identified. The right ovary measures 2.2 x 1.4 x 1.9 cm. Normal blood flow is demonstrated with Doppler interrogation. The left ovary measures 2.8 x 2.3 x 2.4 cm. Normal blood flow is demonstrated with Doppler interrogation. IMPRESSION: Single live intrauterine gestation of approximately 13 weeks 0 days gestational age. heart rate 154 beats per minute. Cervix long and closed. No adnexal masses. No evidence of ovarian torsion. The preliminary findings for this examination were reported by [facility] at 11:48 p.m. on 10/23/2017. There is concurrence of this report with the preliminary findings.
--- NOTE | 2017-10-24 15:26 | CARD ---
APPROVED REPORT Date of service: 10/23/2017 EKG Measurement Heart [id number] <Conclusion> Normal sinus rhythm Normal ECG
== END 2017-10-24 00:44 | disposition home or self-care (01) ==
LOC: H.ER 19:06
DX: O23.40 Unspecified infection of urinary tract in pregnancy, unspecified trimester (principal); O26.891 Other specified pregnancy related conditions, first trimester

== ENCOUNTER 2017-11-15 20:44 | Emergency (ER) | payer SELFPAY ==
[2017-11-15 20:44] VITALS: BMI 37.0
[2017-11-15 21:55] VITALS: O2SAT 99
[2017-11-15] MEDS ORDERED: Metoclopramide 10 mg/10 ml Cup PO ONE (23:54)
--- NOTE | 2017-11-15 23:57 | ED PDOC ---
HPI: Headache Time Seen by Provider: 11/15/17 23:43 Chief Complaint (Nursing): Headache Chief Complaint (Provider): Headache History Per: Patient Additional Complaint(s): Pt is a 22 yo female, , presents to ED currently at 16 weeks for evaluation of headache, dizziness and lower abdominal cramping. Pt is followed by her OB at [facility], reports next appointment is the Nov. Pt denies nay nausea or vomiting. No LOF or vaginal bleeding. Pt also states for the past 3 days she has not felt her "baby" move. Past Medical History Reviewed: Nursing Documentation, Vital Signs Vital Signs: Last Vital Signs Temp 98.2 F 11/15/17 21:50 Pulse 86 11/15/17 21:50 Resp 17 11/15/17 21:50 BP 106/70 11/15/17 21:50 Pulse Ox 99 11/15/17 21:50 - Medical History PMH: No Chronic Diseases, Gastritis Denies: Chronic Kidney Disease - Surgical History Surgical History: Appendectomy, (x 1) - Family History Family History: States: Unknown Family Hx - Living Arrangements Living Arrangements: With Family - Social History Current smoker - smoking cessation education provided: No Alcohol: None Drugs: Denies - Home Medications Home Medications: Ambulatory Orders Medication Instructions Recorded Ibuprofen [Motrin] 600 mg PO Q8 PRN #15 tab 07/30/15 Loratadine [Claritin] 10 mg PO DAILY #15 tab 07/30/15 Amoxicillin/Clavulanate [Augmentin 1 tab PO BID #14 tab 10/03/15 875 MG-125 MG] Ibuprofen [Motrin] 600 mg PO Q6 PRN #15 tab 10/03/15 traMADol [Ultram] 50 mg PO TID PRN #20 tab 10/05/15 Acetaminophen/Butalbital/Caf 1 tab PO TID #20 tab 06/26/16 [Fioricet] Clindamycin Phos/Benzoyl Perox 50 gm TP BID #1 gel.w.pump 06/26/16 [Clinda-Benzoyl Perox 1-5% Pump] Famotidine [Pepcid] 20 mg PO DAILY #20 tab 06/26/16 Clindamycin [Cleocin] 300 mg PO QID #40 cap 08/24/16 Ketoconazole 2% Cr [Nizoral] 1 appl TP BID #1 tube 12/16/16 Nitrofurantoin Macrocrystals 100 mg PO BID #14 cap 12/16/16 [Macrobid] Naproxen [Naprosyn] 1 tab PO BID PRN #30 tab 01/22/17 Cyclobenzaprine [Cyclobenzaprine 10 mg PO BID #14 tab 03/27/17 HCl] Ibuprofen [Motrin] 400 mg PO Q6 #30 tab 03/27/17 Nitrofurantoin Macrocrystals 100 mg PO BID #14 cap 05/14/17 [Macrobid] Nitrofurantoin Macrocrystals 100 mg PO BID #14 cap 10/22/17 [Macrobid] Nitrofurantoin Macrocrystals 100 mg PO BID #14 cap 10/24/17 [Macrobid] - Allergies Allergies/Adverse Reactions: Allergies Allergy/AdvReac Type Severity Reaction Status Date / Time ceftriaxone sodium Allergy RASH Verified 10/23/17 19:10 [From Rocephin] Review of Systems Gastrointestinal: Positive for: Abdominal Pain Neurological: Positive for: Headache, Dizziness Physical Exam - Reviewed Nursing Documentation Reviewed: Yes Vital Signs Reviewed: Yes - Physical Exam Appears: Positive for: Well, Non-toxic, No Acute Distress Head Exam: Positive for: ATRAUMATIC, NORMAL INSPECTION, NORMOCEPHALIC Skin: Positive for: Normal Color, Warm, DRY Eye Exam: Positive for: EOMI, Normal appearance, PERRL ENT: Positive for: Normal ENT Inspection Neck: Positive for: Normal, Painless ROM Cardiovascular/Chest: Positive for: Regular Rate, Rhythm Respiratory: Positive for: CNT, Normal Breath Sounds Gastrointestinal/Abdominal: Positive for: Normal Exam, Soft Back: Positive for: Normal Inspection Extremity: Positive for: Normal ROM Neurologic/Psych: Positive for: Alert, Oriented - ECG O2 Sat by Pulse Oximetry: 99 Medical Decision Making Medical Decision Making: Pt educated on when movement is generally detected. Pt also educated on round ligament pain. Pt medicated with Acetaminophen and Reglan PO Case endorsed to JAH Aragon at 0000 pending diagnostic review and re-eval Disposition - Clinical Impression Clinical Impression: -related symptom in second trimester - Patient ED Disposition Is Patient to be Admitted: Transfer of Care - Disposition Disposition: Transfer of Care Disposition Time: 23:59 Condition: STABLE
[2017-11-16 00:41] LABS: BASO % 0.3 % (0.0-2.0); EOS # 0.1 K/uL (0.0-0.7); EOS % 0.8 % (0.0-4.0); HEMOGLOBIN 13.2 g/dL (12.0-16.0); LYMPH # 2.4 K/uL (1.0-4.3); LYMPH % 19.1 % (20.0-40.0); MEAN CELL VOLUME 86.5 fl (81.0-99.0); MEAN CORPUSCULAR HEMOGLOBIN 29.4 pg (27.0-31.0); MEAN CORPUSCULAR HGB CONC 33.9 g/dL (33.0-37.0); MEAN PLATELET VOLUME 10.2 fl (7.2-11.7); NEUT % 71.8 % (50.0-75.0); NRBC % 0.1 % (0.0-0.0); RBC 4.51 Mil/uL (3.80-5.20); RED CELL DISTRIBUTION WIDTH 14.4 % (11.5-14.5); WHITE BLOOD COUNT 12.6 K/uL (4.8-10.8)
[2017-11-16 00:56] LABS: ALB/GLOB RATIO 1.2 (1.0-2.1); ALBUMIN 3.9 g/dL (3.5-5.0); ALT/SGPT 17 U/L (9-52); AST/SGOT 14 U/L (14-36); BLOOD UREA NITROGEN 6 mg/dl (7-17); CALCIUM 9.1 mg/dL (8.4-10.2); GFR AFRICAN-AMERICAN > 60; GFR NON-AFRICAN AMERICAN > 60; SQUAMOUS EPITHIAL 6 /hpf (0-5); URINE BACTERIA OCC (<OCC); URINE BILIRUBIN NEGATIVE (NEGATIVE); URINE BLOOD NEGATIVE (NEGATIVE); URINE CALCIUM OXALATE CRYSTALS FEW /hpf (<OCC); URINE CLARITY CLOUDY (Clear); URINE COLOR YELLOW (YELLOW); URINE GLUCOSE (UA) NEG (Normal); URINE LEUKOCYTE ESTERASE NEG Leu/uL (Negative); URINE PROTEIN 30 mg/dL (NEGATIVE)
--- NOTE | 2017-11-16 02:45 | ED PDOC ---
- Laboratory Results Result Diagrams: 11/16/17 00:32 11/16/17 00:32 - ECG O2 Sat by Pulse Oximetry: 99 - Progress ED Course And Treament: Case endorsed to investment underwriter from Deborah TYSON pending labs, re-eval Bedside ultrasound performed by Dr. Sidhu as patient states she has not felt baby moving +FHB visualized, + movement visualized Patient educated on findings, advised follow up Clinical Research Spec 2-3 days Tylenol PRN pain. Fluids Return precautions given Disposition - Clinical Impression Clinical Impression: -related symptom in second trimester - POA Present On Arrival: None - Disposition Disposition: Routine/Home Disposition Time: 02:55 Condition: IMPROVED Instructions: Round Ligament Pain, Headache, Adult
[2017-11-16 03:01] VITALS: BP 113/55; PULSE 84; RESP 16; TEMP 97.6
== END 2017-11-16 03:10 | disposition home or self-care (01) ==
LOC: H.ER 20:44
DX: O26.892 Other specified pregnancy related conditions, second trimester (principal); Z3A.16 16 weeks gestation of pregnancy